=== PATIENT | female | born 1935 | race Hispanic/Latino ===

== ENCOUNTER 2021-11-12 08:14 | Inpatient (IN) | payer OTHER ==
--- NOTE | 2021-11-12 09:06 | ER ---
Nurse's Notes [facility] Name: Carly Baeza Age: 86 yrs Sex: Female : 1935 Arrival Date: 11/12/2021 Time: 08:18 Bed 6 Private MD: Diagnosis: Acute kidney failure, unspecified Presentation: 11/12 08:31 Chief complaint: Patient states: pt presented to ED referred by kidney DOC to come to ED to be admitted for dialysis port to get dialysis. Coronavirus screen: Vaccine status: Patient reports receiving the 2nd dose of the covid vaccine. Ebola Screen: Patient denies travel to an Ebola-affected area in the 21 days before illness onset. Initial Sepsis Screen: Does the patient meet any 2 criteria? No. Patient's initial sepsis screen is negative. Does the patient have a suspected source of infection? No. Patient's initial sepsis screen is negative. Risk Assessment: Do you want to hurt yourself or someone else? Patient reports no desire to harm self or others. Onset of symptoms was November 2021. 08:31 Method Of Arrival: Ambulatory 08:31 Acuity: SHELLY 3 Triage Assessment: 08:33 General: Appears in no apparent distress. Behavior is calm, cooperative. Pain: Denies courtney pain. Historical: - Allergies: 08:33 Levaquin; courtney 08:33 Morphine; courtney - Home Meds: 08:33 Enalapril Oral [Active]; Isosorbide Mononitrate Oral [Active]; levothyroxine oral courtney [Active]; Metformin Oral [Active]; Metoprolol Tartrate Oral [Active]; - PMHx: 08:33 Diabetes - NIDDM; High Cholesterol; Hypertension; Hypothyroidism; End stage renal courtney disease; CAD; COPD; Myocardial infarction; - PSHx: 08:33 None; courtney - Immunization history:: Adult Immunizations up to date. - Social history:: Smoking status: Patient denies any tobacco usage or history of. Screenin:35 Abuse screen: Denies threats or abuse. Nutritional screening: No deficits noted. ke1 Tuberculosis screening: No symptoms or risk factors identified. Fall Risk No fall in past 12 months (0 pts). No secondary diagnosis (0 pts). IV access (20 points). Ambulatory Aid- None/Bed Rest/Nurse Assist (0 pts). Gait- Normal/Bed Rest/Wheelchair (0 pts) Mental Status- Oriented to own ability (0 pts). Total Dong Fall Scale indicates No Risk (0-24 pts). Assessment: 08:35 Reassessment: patient is here because she needs a dialysis line inserted. General: ke1 Appears in no apparent distress. Behavior is calm, cooperative. Pain: Denies pain. Neuro: Level of Consciousness is awake, alert, obeys commands. Cardiovascular: Capillary refill < 3 seconds. Respiratory: Airway is patent Trachea midline Respiratory effort is even, unlabored. Vital Signs: 08:31 BP 174 / 95; Pulse 71; Resp 17; Temp 98.4; Pulse Ox 100% ; Weight 91.63 kg; Height 5 courtney ft. 3 in. (160.02 cm); 08:31 Body Mass Index 35.78 (91.63 kg, 160.02 cm) ED Course: 08:18 Patient arrived in ED. ds1 08:19 Rosanna Ackerman MD is Attending Physician. sp3 08:27 Davey Smith RN is Primary Nurse. ke1 08:33 Triage completed. courtney 08:33 Arm band placed on. courtney 08:35 Bed in low position. Call light in reach. ke1 09:00 No provider procedures requiring assistance completed. Patient admitted, IV remains in ke1 place. 09:05 Sina Rebolledo MD is Hospitalizing Provider. sp3 09:31 SARS-COV-2 RT PCR (Document "Date of Onset" if Symptomatic) Sent. courtney 09:31 Basic Metabolic Panel Sent. courtney 09:31 CBC with Diff Sent. courtney 09:31 LFT's Sent. courtney 09:32 Inserted saline lock: 20 gauge in left antecubital area, using aseptic technique. courtney Administered Medications: No medications were administered Outcome: 09:06 Decision to Hospitalize by Provider. sp3 10:00 Admitted to OR accompanied by nurse. ke1 10:00 Condition: stable 10:00 Instructed on the need for admit. 10:15 Patient left the ED. ke1 Signatures: Birgit Cosme ds1 Rosanna Ackerman MD MD sp3 Lilia-StagerMorena RN RN Davey Smith RN RN ke1
--- NOTE | 2021-11-12 09:07 | EDPHYS ---
Physician Documentation [facility] Name: Carly Baeza Age: 86 yrs Sex: Female : 1935 Arrival Date: 11/12/2021 Time: 08:18 Bed 6 Private MD: ED Physician Rosanna Ackerman HPI: 11/12 08:35 This 86 yrs old Female presents to ER via Ambulatory with complaints of Needs sp3 dialysis catheter Replacement. 08:35 86-year-old female with a history of diabetes, hypertension, hypothyroidism, and recent sp3 renal function decline presents to the ED referred by her melangeur operator and engraver seals for hemodialysis catheter placement and initiation of hemodialysis. Patient has had a decrease in GFR of a baseline of 10 in the field which had decreased to 5 and due to this patient was referred for dialysis. I received a call from Dr. Ovalles who asked patient to be admitted to the hospitalist service and routine labs initiated as well as a consult to Dr. Grover for surgical catheter placement. Patient has no current symptoms including headache, chest pain, shortness of breath, peripheral edema, abdominal pain, fever, any other symptoms on ROS.. Historical: - Allergies: 08:33 Levaquin; courtney 08:33 Morphine; courtney - Home Meds: 08:33 Enalapril Oral [Active]; Isosorbide Mononitrate Oral [Active]; levothyroxine oral courtney [Active]; Metformin Oral [Active]; Metoprolol Tartrate Oral [Active]; - PMHx: 08:33 Diabetes - NIDDM; High Cholesterol; Hypertension; Hypothyroidism; End stage renal courtney disease; CAD; COPD; Myocardial infarction; - PSHx: 08:33 None; courtney - Immunization history:: Adult Immunizations up to date. - Social history:: Smoking status: Patient denies any tobacco usage or history of. ROS: 08:36 Constitutional: Negative for fever, chills, and weight loss, Eyes: Negative for injury, sp3 pain, redness, and discharge, ENT: Negative for injury, pain, and discharge, Neck: Negative for injury, pain, and swelling, Cardiovascular: Negative for chest pain, palpitations, and edema, Respiratory: Negative for shortness of breath, cough, wheezing, and pleuritic chest pain, Abdomen/GI: Negative for abdominal pain, nausea, vomiting, diarrhea, and constipation, Back: Negative for injury and pain, MS/Extremity: Negative for injury and deformity, Skin: Negative for injury, rash, and discoloration, Neuro: Negative for headache, weakness, numbness, tingling, and seizure, Psych: Negative for depression, anxiety, suicide ideation, homicidal ideation, and hallucinations. 08:36 All other systems are negative. Exam: 08:37 Constitutional: This is a well developed, well nourished patient who is awake, alert, sp3 and in no acute distress. Head/Face: Normocephalic, atraumatic. Eyes: Pupils equal round and reactive to light, extra-ocular motions intact. Lids and lashes normal. Conjunctiva and sclera are non-icteric and not injected. Cornea within normal limits. Periorbital areas with no swelling, redness, or edema. ENT: Nares patent. No nasal discharge, no septal abnormalities noted. External auditory canals are clear. Oropharynx with no redness, swelling, or masses, exudates, or evidence of obstruction, uvula midline. Mucous membranes moist. Neck: Trachea midline, no thyromegaly or masses palpated, and no cervical lymphadenopathy. Supple, full range of motion without nuchal rigidity, or vertebral point tenderness. No Meningismus. Chest/axilla: Normal chest wall appearance and motion. Nontender with no deformity. No lesions are appreciated. Cardiovascular: Regular rate and rhythm with a normal S1 and S2. No gallops, murmurs, or rubs. Normal PMI, no JVD. No pulse deficits. Respiratory: Lungs have equal breath sounds bilaterally, clear to auscultation and percussion. No rales, rhonchi or wheezes noted. No increased work of breathing, no retractions or nasal flaring. Abdomen/GI: Soft, non-tender, with normal bowel sounds. No distension or tympany. No guarding or rebound. No evidence of tenderness throughout. MS/ Extremity: Pulses equal, no cyanosis. Neurovascular intact. Full, normal range of motion. Neuro: Awake and alert, GCS 15, oriented to person, place, time, and situation. Cranial nerves II-XII grossly intact. Motor strength 5/5 in all extremities. Sensory grossly intact. Cerebellar exam normal. Normal gait. Psych: Awake, alert, with orientation to person, place and time. Behavior, mood, and affect are within normal limits. 08:42 ECG was reviewed by the Attending Physician. EKG demonstrates normal sinus rhythm at 60 sp3 bpm with leftward axis, nonspecific diffuse ST/T changes without evidence of acute ischemia. Intervals are also normal. Vital Signs: 08:31 BP 174 / 95; Pulse 71; Resp 17; Temp 98.4; Pulse Ox 100% ; Weight 91.63 kg; Height 5 courtney ft. 3 in. (160.02 cm); 08:31 Body Mass Index 35.78 (91.63 kg, 160.02 cm) courtney MDM: 08:27 Patient medically screened. sp3 08:37 Data reviewed: vital signs, nurses notes. ED course: 86-year-old female who needs sp3 hemodialysis initiation. We will admit patient to the hospitalist service per primary team's request and consult surgery and nephrology as well as laboratory values and EKG. Patient is in no acute distress and no critical emergency exists at this time other than her decreasing renal failure.. 11/12 08:21 Order name: Basic Metabolic Panel sp3 11/12 08:21 Order name: CBC with Diff sp3 11/12 08:21 Order name: LFT's sp3 11/12 08:21 Order name: Magnesium sp3 11/12 08:21 Order name: NT PRO-BNP sp3 11/12 08:21 Order name: PT-INR sp3 11/12 08:21 Order name: Troponin HS sp3 11/12 08:21 Order name: EKG; Complete Time: 08:22 sp3 11/12 08:21 Order name: Cardiac monitoring; Complete Time: 09:31 sp3 11/12 08:21 Order name: Hepatitis Panel sp3 11/12 08:21 Order name: Basic Metabolic Panel EDMS 11/12 08:21 Order name: CBC with Automated Diff EDMS 11/12 08:21 Order name: Liver (Hepatic) Function EDMS 11/12 09:16 Order name: SARS-COV-2 RT PCR (Document "Date of Onset" if Symptomatic) ke1 11/12 08:21 Order name: EKG - Nurse/Tech; Complete Time: 09:03 sp3 11/12 08:21 Order name: IV Saline Lock; Complete Time: 09:31 sp3 11/12 08:21 Order name: Labs collected and sent; Complete Time: : sp3 11/12 08:21 Order name: O2 Sat Monitoring; Complete Time: sp3 11/12 08:44 Order name: NPO; Complete Time: : sp3 Administered Medications: No medications were administered Disposition Summary: 11/12/21 09:06 Hospitalization Ordered Hospitalization Status: Observation sp3 Provider: Sina Rebolledo sp3 Location: Telemetry/MedSurg (observation) sp3 Condition: Stable sp3 Problem: an acute exacerbation sp3 Symptoms: have worsened sp3 Bed/Room Type: Standard sp3 Room Assignment: sp3 Diagnosis - Acute kidney failure, unspecified sp3 Forms: - Medication Reconciliation Form sp3 - SBAR form sp3 Signatures: Dispatcher [employer] Rosanna Fulton MD MD sp3 Lilia-Morena Banda RN RN
[2021-11-12 09:21] LABS: Absolute Lymphocytes (CBC) 0.7 K/uL (0.7-4.9); Hematocrit 23.3 % (36.0-45.0); Lymphocytes % 14.7 % (15.3-44.8); MPV 8.5 fL (7.6-11.3); RBC Red Blood Cell Count 2.51 M/uL (3.86-4.86)
[2021-11-12 09:25] LABS: Protime INR 0.95
[2021-11-12] MEDS ORDERED: NA CHLORIDE 0.9% 500 ML ONE (10:11)
[2021-11-12] MEDS ORDERED: ONDANSETRON 4 MG/2 ML VIAL IV PRN (10:27)
[2021-11-12] MEDS ORDERED: ACETAMINOPHEN 500 MG TAB PO PRN (10:27)
[2021-11-12] MEDS ORDERED: MORPHINE 2 MG/ML SYR IV PRN (10:27)
[2021-11-12 10:50] LABS: Albumin 3.3 g/dL (3.4-5.0); BUN Blood Urea Nitrogen 95 mg/dL (7-18); Bicarbonate 21 mmol/L (21-32); Bilirubin Total 0.3 mg/dL (0.2-1.0); Glucose Level 103 mg/dL (74-106); Magnesium 2.1 mg/dL (1.8-2.4); NT PRO-BNP 5677 pg/mL (<450); Potassium 4.8 mmol/L (3.5-5.1); Protein, Total 6.5 g/dL (6.4-8.2); Sodium Level 143 mmol/L (136-145)
[2021-11-12 10:51] LABS: Bilirubin Direct < 0.1 mg/dL (0-0.2)
[2021-11-12] MEDS ORDERED: CEFAZOLIN SODIUM 1 GM/VIAL ONE (10:57)
[2021-11-12 11:09] LABS: ALT/SGPT 11 U/L (12-78); AST/SGOT 9 U/L (15-37); Alkaline Phosphatase 77 U/L (45-117)
[2021-11-12] MEDS ORDERED: MIDAZOLAM HCL 2 MG/2 ML INJ ONE (11:09)
[2021-11-12] MEDS ORDERED: dexAMETHasone 4 MG/ML VIAL ONE (11:09)
[2021-11-12] MEDS ORDERED: LIDOCAINE 1% MPF 5 ML VIAL ONE (11:09)
[2021-11-12] MEDS ORDERED: FENTANYL CITR 100 MCG/2 ML ONE (11:09)
[2021-11-12] MEDS ORDERED: ETOMIDATE 20 MG/10 ML VIAL IV ONE (11:10)
[2021-11-12] MEDS ORDERED: ONDANSETRON 4 MG/2 ML VIAL ONE (11:10)
[2021-11-12] MEDS ORDERED: HEPARIN 5000 UNIT/ML 1 ML VIAL ONE (11:11)
[2021-11-12] MEDS ORDERED: NA CHLORIDE 0.9% 100 ML IV ONE (11:12)
[2021-11-12] MEDS ORDERED: LIDOCAINE 1% 20 ML MDV ONE (11:13)
[2021-11-12] MEDS ORDERED: NS 0.9% VIAL 10 ML ONE (11:13)
--- NOTE | 2021-11-12 11:57 | PREOPCON ---
Date of Consultation: 11/12/2021 Reason For Consultation: The patient needs urgent dialysis. History Of Present Illness: The patient is an 86-year-old female with multiple medical problems, who has been followed by entry level receptionist Dr. Ovalles as an outpatient. Her GFR has reduced to 5% and requi res dialysis urgently and the patient does have a fistula, which has not matured in the right arm, wh ich was placed 2 weeks ago. The patient is awake, alert. Denies any sore throat, runny nose, cough, headaches, or dizziness. No chest pain. No fever or chills. Review of Systems: Otherwise unremarkable. Past Medical History: Significant for diabetes type 2, hypercholesterolemia, hypertension, hypothyro idism, end-stage renal disease, coronary artery disease, COPD, and [place]. Past Surgical History: Includes thyroidectomy, cholecystectomy, . Allergies: LEVAQUIN AND MORPHINE. Social History: The patient does not smoke or drink alcohol. Family History: Noncontributory. Physical Examination: Vital Signs: Stable. She is afebrile. General: She is awake, alert, and oriented x3. Head and Neck: Cranial nerves 2 through 12 are grossly within limits. No neck masses. No JVD. Thr oat clear. Neck is supple. Chest: Clear. Heart: S1 and S2. Abdomen: Soft. Extremities: Neurovascularly intact. Neurologic: Nonfocal. Laboratory Data: H and H are 7.7 and 23.3, platelets are 174. INR is 0.95. Chemistry is pending. Assessment: An 86-year-old female with acute renal failure requiring dialysis soon. Recommendations: We will proceed with placement of a Tesio catheter. The patient and family underst and the risks, benefits, and alternatives and agrees to procedure. Plan of care was discussed with Rachel Ovalles. CHANDLER/LA Voice ID: [id number] Report ID: [id number]
--- NOTE | 2021-11-12 12:19 | P.OP ---
Electrical Engineer Mep: NONE,NONE Preoperative diagnosis: Acute renal failure, end-stage renal disease Postoperative diagnosis: Same Primary procedure: Right IJ Tesio catheter placement Secondary procedure: Interpretation of intraoperative fluoroscopy Anesthesia: General Estimated blood loss: Minimal Specimen: None Findings: As above Operative Technique: Patient brought to the OR placed in supine position. Patient prepped and draped in usual sterile fashion. Lidocaine 1% infiltrated locally. 18-gauge needle used to access the right IJ vein. Guidewire passed and position confirmed with fluoroscopy. Counterincision made on the right anterior chest. Tunneling of device used to tunnel the catheter between the 2 wounds. Seldinger technique used. Right IJ vein dilated. Tip of the catheter placed in the SVC under fluoroscopy. Catheter flushed with heparin and packed with heparin with good blood flow. 3-0 chromic used to approximate subcutaneous tissue and closed skin. And 3-0 nylon used to secure Tesio catheter to the chest wall. Sterile dressing applied. Patient awakened taken to recovery in good general condition. Complications: None Transferred to: Recovery Room Condition: Good
--- NOTE | 2021-11-12 12:23 | RAD REPORT ---
EXAM DESCRIPTION: RAD - Fluoroscopy <1 Hour - 11/12/2021 12:13 pm FINDINGS: Two portable C-arm views were submitted from fluoroscopic assisted placement of a double-l umen hemodialysis catheter. No suspicious or unexpected finding on the images. Fluoro time was less than 0.1 minutes. Cumulative dose measured 1.72 mGy.
--- NOTE | 2021-11-12 12:47 | RAD REPORT ---
EXAM DESCRIPTION: RAD - Chest Single View - 11/12/2021 12:40 pm CLINICAL HISTORY: Status post Tesio catheter placement Chest pain. COMPARISON: No comparisons FINDINGS: Portable technique limits examination quality. Right-sided venous catheter is in place with tip in the SVC. No postprocedure pneumothorax.
[2021-11-12 14:28] VITALS: BMI 35.7
[2021-11-12] MEDS ORDERED: NA CHLORIDE 0.9% 1,000 ML IV PRN (15:29)
[2021-11-12] MEDS ORDERED: MANNITOL 25% 12.5 GM/50 ML VIAL IV PRN (15:29)
[2021-11-12] MEDS ORDERED: ALBUMIN HUMAN 25% 50 ML IV SCH (16:00)
[2021-11-12] MEDS ORDERED: EPOETIN ALFA-EPBX 10,000 UNIT/ML VIAL SQ ONE (16:00)
--- NOTE | 2021-11-12 19:05 | P.CNS ---
Date of Consult: 11/12/21 Reason for Consult: ESRD Requesting Physician: Sina Rebolledo Chief Complaint: Mild uremia History of Present Illness: 86 yo HF HTN, DM, CKD presented to the [facility] ER with severe, progressive CKD in the setting of HTN & DM, that is now requiring dialysis due to a worsening GFR. +Appetite +Fatigue +Intermittent edema The case was reviewed with her creative project manager, Dr. Key. We decided it would be best to initiate the patient in the hospital due to her multiple comorbidities. No current NSAIDs. No difficulty with urination. Allergies levofloxacin [From Levaquin] Allergy (Unverified 10/29/16 12:41) Unknown morphine Allergy (Verified 11/12/21 10:55) Shortness of breath Home medications list reviewed: Yes Home Medications: Amlodipine Besylate [Norvasc] 10 mg PO DAILY 12/21/15 Isosorbide Mononitrate [Isosorbide Mononitrate ER] 60 mg PO DAILY 12/21/15 Levothyroxine [Synthroid*] 125 mcg PO [id number] 12/21/15 Aspirin [Aspirin EC 81 MG] 81 mg PO DAILY 11/12/21 Calcium Acetate [Phoslo] 667 mg PO TIDWM 11/12/21 Ferrous Sulfate [Feosol] 325 mg PO M,W,F 11/12/21 Levetiracetam [Keppra] 250 mg PO BID 11/12/21 Levothyroxine Sodium [Euthyrox] 125 mcg PO [id number] 11/12/21 Na Bicarb Tab [Sodium Bicarb 325 MG Tab*] 650 mg PO TID 11/12/21 Pantoprazole [Protonix Tab] 40 mg PO [id number] 11/12/21 Ubidecarenone [Co Q-10] 100 mg PO DAILY 11/12/21 carvediloL [Coreg] 12.5 mg PO BID 11/12/21 - Past Medical/Surgical History Diabetic: Yes -: ESRD -: HD cath -: Hx of [place] -: Thyroidectomy -: HTN -: Diverticulitis -: NIDDM -: Hx Shingles -: HLD -: csection -: cholecystectomy -: l hip surgery -: cardiac cath - Family History Mother Medical History: Heart disease Father Medical History: Kidney disease - Social History Smoking Status: Never smoker Alcohol use: No CD- Drugs: No Caffeine use: No Place of Residence: Home Review of Systems 10-point ROS is otherwise unremarkable General: Weakness Cardiovascular: Edema Physical Examination Temp Pulse Resp BP Pulse Ox 97.0 F 56 16 122/58 L 96 11/12/21 16:00 11/12/21 16:00 11/12/21 16:00 11/12/21 16:00 11/12/21 16:00 General: In no apparent distress, Cooperative HEENT: Atraumatic Neck: Supple Respiratory: Clear to auscultation bilaterally Cardiovascular: No edema, Regular rate/rhythm Gastrointestinal: Soft and benign, Non-distended Musculoskeletal: No clubbing, No contractures Integumentary: No rashes, No cyanosis Neurological: Normal speech Urinary: Dialysis catheter Laboratory Data (last 24 hrs) 11/12/21 09:11: PT 10.9, INR 0.95 11/12/21 09:11: WBC 4.70, Hgb 7.7 L, Hct 23.3 L, Plt Count 174 11/12/21 09:11: Sodium 143, Potassium 4.8, BUN 95 H, Creatinine 6.92 H*, Glucose 103, Magnesium 2.1, Total Bilirubin 0.3, AST 9 L, ALT 11 L, Alkaline Phosphatase 77 Imagings Data: EXAM DESCRIPTION: RAD - Chest Single View - 11/12/2021 12:40 pm CLINICAL HISTORY: Status post Tesio catheter placement Chest pain. COMPARISON: No comparisons FINDINGS: Portable technique limits examination quality. Right-sided venous catheter is in place with tip in the SVC. No postprocedure pneumothorax. Conclusions/Impression: ESRD -Dr. Grover consulted for tunneled CVC placement -Initiate HD today -Hepatitis panel pending -Social service consult for HD placement HTN with CKD/ CHF -Monitor BP Diastolic CHF, chronic -HD with UF -Start CoEQ10 DM II with CKD -Low sugar diet Anemia in CKD -Give Retacrit X1 CKD MBD -Start Calcitriol -Start Cholecalciferol Thank you kindly for the consultation. Case reviewed with Dr. Rebolledo, Dr. Grover and Dr. Ackerman.
[2021-11-13] MEDS: DOCUSATE NA 100 MG CAP PO SCH ×3 (00:59→23:47)
[2021-11-13] MEDS: CALCIUM ACETATE 667 MG TAB PO SCH ×3 (08:08→17:12)
[2021-11-13] MEDS: MULTIVITAMINS,THERAPEUT 1 TAB PO SCH (08:08)
[2021-11-13] MEDS: CALCITROL 0.25 MCG CAP PO SCH (08:08)
[2021-11-13] MEDS: VITAMIN D 5,000 UNIT CAP PO SCH (08:08)
[2021-11-13] MEDS: COENZYME Q10- 200 MG CAP PO SCH (08:09)
[2021-11-13] MEDS ORDERED: COENZYME Q10- 200 MG CAP PO SCH (09:00)
--- NOTE | 2021-11-13 09:14 | P.HP ---
Certification for Inpatient Patient admitted to: Inpatient With expected LOS: >2 Midnights Patient will require the following post-hospital care: None Practitioner: I am a practitioner with admitting privileges, knowledge of patient current condition, hospital course, and medical plan of care. Services: Services provided to patient in accordance with Admission requirements found in Title 42 Section 412.3 of the Code of Federal Regulations Patient History Date of Service: 11/12/21 Reason for admission: Renal failure/ESRD History of Present Illness: Patient is an 86-year-old female who came to the hospital with renal failure. Patient's renal function has been worsening progressively. Patient came to the emergency room for further evaluation. In the emergency room, patient was taken to the operating room for hemodialysis access catheter. Once this was done patient was dialyzed. Patient is severely uremic and acidotic. Patient will need long-term hemodialysis. We will get with case management to get this arranged. At this time, patient is clinically doing well and plan to discharge home once we get outpatient hemodialysis arranged. Allergies levofloxacin [From Levaquin] Allergy (Unverified 10/29/16 12:41) Unknown morphine Allergy (Verified 11/12/21 10:55) Shortness of breath Home Medications: Amlodipine Besylate [Norvasc] 10 mg PO DAILY 12/21/15 Isosorbide Mononitrate [Isosorbide Mononitrate ER] 60 mg PO DAILY 12/21/15 Levothyroxine [Synthroid*] 125 mcg PO [id number] 12/21/15 Aspirin [Aspirin EC 81 MG] 81 mg PO DAILY 11/12/21 Calcium Acetate [Phoslo] 667 mg PO TIDWM 11/12/21 Ferrous Sulfate [Feosol] 325 mg PO M,W,F 11/12/21 Levetiracetam [Keppra] 250 mg PO BID 11/12/21 Levothyroxine Sodium [Euthyrox] 125 mcg PO [id number] 11/12/21 Na Bicarb Tab [Sodium Bicarb 325 MG Tab*] 650 mg PO TID 11/12/21 Pantoprazole [Protonix Tab] 40 mg PO [id number] 11/12/21 Ubidecarenone [Co Q-10] 100 mg PO DAILY 11/12/21 carvediloL [Coreg] 12.5 mg PO BID 11/12/21 - Past Medical/Surgical History Has patient received pneumonia vaccine in the past: Yes Diabetic: Yes -: ESRD -: HD cath -: Hx of [place] -: Thyroidectomy -: HTN -: Diverticulitis -: NIDDM -: Hx Shingles -: HLD -: csection -: cholecystectomy -: l hip surgery -: cardiac cath - Family History Mother Medical History: Heart disease Father Medical History: Kidney disease - Social History Alcohol use: No CD- Drugs: No Caffeine use: No Place of Residence: Home Review of Systems 10-point ROS is otherwise unremarkable Physical Examination - Vital Signs Temperature: 97.1 F Blood Pressure: 143/65 Pulse: 87 Respirations: 16 Pulse Ox (%): 93 - Physical Exam General: Alert, In no apparent distress, Oriented x3 HEENT: Atraumatic, PERRLA, Mucous membr. moist/pink, EOMI, Sclerae nonicteric Neck: Supple, 2+ carotid pulse no bruit, No LAD, Without JVD or thyroid abnormality Respiratory: Diminished, Crackles/rales Cardiovascular: Regular rate/rhythm, Normal S1 S2, No murmurs Gastrointestinal: Normal bowel sounds, Soft and benign, Non-distended, No tenderness Musculoskeletal: No clubbing, No swelling, No tenderness Integumentary: No rashes Neurological: Normal gait, Normal speech, Normal strength at 5/5 x4 extr, Normal tone, Sensation intact, Cranial nerves 3-12 intact, Normal affect Lymphatics: No axilla or inguinal lymphadenopathy - Studies Laboratory Data (last 24 hrs) 11/12/21 09:11: PT 10.9, INR 0.95 11/12/21 09:11: WBC 4.70, Hgb 7.7 L, Hct 23.3 L, Plt Count 174 11/12/21 09:11: Sodium 143, Potassium 4.8, BUN 95 H, Creatinine 6.92 H*, Glucose 103, Magnesium 2.1, Total Bilirubin 0.3, AST 9 L, ALT 11 L, Alkaline Phosphatase 77 Assessment & Plan - Problems (Diagnosis) (1) End-stage renal disease needing dialysis Current Visit: Yes Status: Acute (2) Chest discomfort Current Visit: Yes Status: Acute (3) Volume overload Current Visit: Yes Status: Acute (4) Uremia Current Visit: Yes Status: Acute - Plan Plan: 1. Consult nephrology and general surgery. 2. Hemodialysis access catheter per general surgery 3. Hemodialysis per nephrology 4. Start PPI for chest discomfort 5. Arrange for outpatient hemodialysis with case management 6. GI DVT prophylaxis Discharge Plan: Home Plan to discharge in: Greater than 2 days - Advance Directives Does patient have a Living Will: No Does patient have a Durable POA for Healthcare: No - Code Status/Comfort Care Code Status Assessed: Yes Code Status: Full Code Critical Care: No Time Spent Managing PTS Care (In Minutes): 45
[2021-11-13] MEDS: carvediloL 12.5 MG TAB PO SCH ×2 (09:15→23:47)
[2021-11-13] MEDS ORDERED: PANTOPRAZOLE 40MG TABLET PO ONE (09:25)
[2021-11-13] MEDS ORDERED: MAGNES/ALUMIN/SIMET 30ML UCUP PO ONE (09:25)
[2021-11-13] MEDS: ISOSORBIDE MONO SR 60 MG TAB PO SCH (09:30)
[2021-11-13 11:36] LABS: Absolute Lymphocytes (CBC) 0.8 K/uL (0.7-4.9); Lymphocytes % 10.6 % (15.3-44.8); MPV 8.9 fL (7.6-11.3); RBC Red Blood Cell Count 2.67 M/uL (3.86-4.86)
[2021-11-13] MEDS ORDERED: CALCIUM ACETATE 667 MG TAB PO SCH (12:00)
[2021-11-13] MEDS: levETIRAcetam 500 MG TAB PO SCH ×2 (12:27→23:47)
[2021-11-13 12:42] LABS: Albumin 3.2 g/dL (3.4-5.0); Bilirubin Total 0.3 mg/dL (0.2-1.0); Folic Acid, (Folate) 22.1 ng/mL (3.1-17.5); Phosphorus 3.4 mg/dL (2.5-4.9); Protein, Total 6.6 g/dL (6.4-8.2); Uric Acid 5.9 mg/dL (2.6-6.0)
[2021-11-13 12:43] LABS: Potassium 4.6 mmol/L (3.5-5.1)
[2021-11-13] MEDS ORDERED: SODIUM BICARB 325 MG TAB PO SCH (14:00)
--- NOTE | 2021-11-13 20:31 | P.PN ---
Date of Service: 11/13/21 Vital Signs Temp Pulse Resp BP Pulse Ox 96.9 F 62 16 130/63 95 11/13/21 16:00 11/13/21 16:00 11/13/21 16:00 11/13/21 16:00 11/13/21 16:00 Medications Acetaminophen (Acetaminophen 500 Mg Tab) 500 mg PO Q6H PRN PRN Reason: TEMP > 100.4' F OR MILD PAIN Last Admin: 11/12/21 18:45 Dose: 500 mg Documented by: Amlodipine Besylate (Amlodipine 10 Mg Tab) 10 mg PO DAILY [facility] Aspirin (Aspirin Ec 81 Mg Tab) 81 mg PO DAILY [facility] Calcitriol (Calcitrol 0.25 Mcg Cap) 0.5 mcg PO DAILY [facility] Last Admin: 11/13/21 08:08 Dose: 0.5 mcg Documented by: Calcium Acetate (Calcium Acetate 667 Mg Tab) 667 mg PO TIDWM [facility] Last Admin: 11/13/21 17:12 Dose: 667 mg Documented by: Carvedilol (Carvedilol 12.5 Mg Tab) 12.5 mg PO BID [facility] Last Admin: 11/13/21 09:15 Dose: Not Given Documented by: Cholecalciferol (Vitamin D 5,000 Unit Cap) 5,000 unit PO DAILY [facility] Last Admin: 11/13/21 08:08 Dose: 5,000 unit Documented by: Coenzyme Q10 (Coenzyme Q10- 200 Mg Cap) 200 mg PO DAILY [facility] Last Admin: 11/13/21 08:09 Dose: 200 mg Documented by: Docusate Sodium (Docusate Na 100 Mg Cap) 100 mg PO BID [facility] Last Admin: 11/13/21 08:08 Dose: 100 mg Documented by: Ferrous Sulfate (Ferrous Sulfate 325 Mg Tab) 325 mg PO M,W,F [facility] Heparin Sodium (Porcine) (Heparin 1,000 Unit/Ml Vial) 6,000 unit IV EVERY HD PRN PRN Reason: AFTER EACH Albumin Human (Albumin 25%) 50 mls @ 100 mls/hr IV EVERY HD [facility] Isosorbide Mononitrate (Isosorbide [place] Sr 60 Mg Tab) 60 mg PO DAILY [facility] Last Admin: 11/13/21 09:30 Dose: Not Given Documented by: Levetiracetam (Levetiracetam 500 Mg Tab) 250 mg PO BID [facility] Last Admin: 11/13/21 12:27 Dose: 250 mg Documented by: Levothyroxine Sodium (Levothyroxine Sod 0.125 Mg Tab) 0.125 mg PO [id number] [facility] Mannitol (Mannitol 25% 12.5 Gm/50 Ml Vial) 12.5 gm IV EVERY HD PRN PRN Reason: PRN FOR BP SUPPORT AT HD Ondansetron HCl (Ondansetron 4 Mg/2 Ml Vial) 4 mg IV Q8H PRN PRN Reason: NAUSEA / VOMITING Pantoprazole Sodium (Pantoprazole 40mg Tablet) 40 mg PO [id number] [facility]; Protocol Sodium Chloride (Flush Normal Saline 10 Ml) 10 ml IV BID [facility] Last Admin: 11/13/21 08:09 Dose: 10 ml Documented by: Vitamin B Complex/Vit C/Folic Acid (Multivitamins,Therapeut 1 Tab) 1 tab PO DAILY [facility] Last Admin: 11/13/21 08:08 Dose: 1 tab Documented by: Assessment/ Plan: Nephrology No dyspnea No chest pain No acute events overnight Vitals, medications, blood work and imaging reviewed in the chart. General: In no apparent distress, Cooperative HEENT: Atraumatic Neck: Supple Respiratory: Clear to auscultation bilaterally Cardiovascular: No edema, Regular rate/rhythm Gastrointestinal: Soft and benign, Non-distended Musculoskeletal: No clubbing, No contractures Integumentary: No rashes, No cyanosis Neurological: Normal speech Urinary: Dialysis catheter Laboratory Data (last 24 hrs) 11/12/21 09:11: PT 10.9, INR 0.95 11/12/21 09:11: WBC 4.70, Hgb 7.7 L, Hct 23.3 L, Plt Count 174 11/12/21 09:11: Sodium 143, Potassium 4.8, BUN 95 H, Creatinine 6.92 H*, Glucose 103, Magnesium 2.1, Total Bilirubin 0.3, AST 9 L, ALT 11 L, Alkaline Phosphatase 77 Imagings Data: EXAM DESCRIPTION: RAD - Chest Single View - 11/12/2021 12:40 pm CLINICAL HISTORY: Status post Tesio catheter placement Chest pain. COMPARISON: No comparisons FINDINGS: Portable technique limits examination quality. Right-sided venous catheter is in place with tip in the SVC. No postprocedure pneumothorax. Conclusions/Impression: ESRD -HD initiated 11-12-20 -Hepatitis panel pending -Social service consult for HD placement HTN with CKD/ CHF -Monitor BP Diastolic CHF, chronic -HD with UF -Continue CoEQ10 DM II with CKD -Low sugar diet Anemia in CKD -Give Retacrit tomorrow CKD MBD -Continue Calcitriol -Continue Cholecalciferol -Continue Phoslo
[2021-11-14 04:11] LABS: Absolute Lymphocytes (CBC) 1.1 K/uL (0.7-4.9); Lymphocytes % 19.8 % (15.3-44.8); MPV 8.3 fL (7.6-11.3); RBC Red Blood Cell Count 2.27 M/uL (3.86-4.86)
[2021-11-14 04:26] LABS: AST/SGOT 12 U/L (15-37); Albumin 2.7 g/dL (3.4-5.0); Alkaline Phosphatase 67 U/L (45-117); BUN Blood Urea Nitrogen 41 mg/dL (7-18); Bicarbonate 29 mmol/L (21-32); Bilirubin Total 0.3 mg/dL (0.2-1.0); Glucose Level 86 mg/dL (74-106); Potassium 4.2 mmol/L (3.5-5.1); Protein, Total 5.5 g/dL (6.4-8.2); Sodium Level 143 mmol/L (136-145)
[2021-11-14 04:28] LABS: ALT/SGPT < 10 U/L (12-78)
[2021-11-14] MEDS: LEVOTHYROXINE SOD 0.125 MG TAB PO SCH (05:22)
[2021-11-14] MEDS: PANTOPRAZOLE 40MG TABLET PO SCH (05:22)
[2021-11-14] MEDS: DOCUSATE NA 100 MG CAP PO SCH ×2 (09:00→20:55)
[2021-11-14] MEDS: VITAMIN D 5,000 UNIT CAP PO SCH (09:00)
[2021-11-14] MEDS ORDERED: UBIDECARENONE 100 MG PO SCH (09:00)
[2021-11-14] MEDS ORDERED: EPOETIN ALFA 10,000 UNIT/ML VIAL SQ SCH (09:00)
[2021-11-14] MEDS: CALCITROL 0.25 MCG CAP PO SCH (09:01)
[2021-11-14] MEDS: ASPIRIN EC 81 MG TAB PO SCH (09:01)
[2021-11-14] MEDS: ISOSORBIDE MONO SR 60 MG TAB PO SCH (09:01)
[2021-11-14] MEDS: CALCIUM ACETATE 667 MG TAB PO SCH ×3 (09:01→16:28)
[2021-11-14] MEDS: AMLODIPINE 10 MG TAB PO SCH (09:02)
[2021-11-14] MEDS: levETIRAcetam 500 MG TAB PO SCH ×2 (09:02→20:56)
[2021-11-14] MEDS: carvediloL 12.5 MG TAB PO SCH ×2 (09:02→20:55)
[2021-11-14] MEDS: COENZYME Q10- 200 MG CAP PO SCH (09:03)
[2021-11-14] MEDS: MULTIVITAMINS,THERAPEUT 1 TAB PO SCH (09:03)
--- NOTE | 2021-11-14 12:57 | EKG ---
Test Date: 2021-11-12 Test Time: 08:36:05 Groundhand: ALFREDO MEASUREMENT RESULTS: Intervals: Rate: 60 SD: 180 QRSD: 98 QT: 408 QTc: 408 [place]: P: 169 SD: 180 QRS: 215 T: 113 INTERPRETIVE STATEMENTS: Suspect arm lead reversal, interpretation assumes no reversal Unusual P axis, possible ectopic atrial rhythm Lateral infarct, age undetermined Abnormal ECG Compared to ECG 10/07/2015 17:23:50 Sinus rhythm no longer present Left-axis deviation no longer present Left ventricular hypertrophy no longer present Myocardial infarct finding still present Electronically Signed On 11-14-21 12:52:29 [employer] by Zane Shipley
[2021-11-14] MEDS: FERROUS SULFATE 325 MG TAB PO SCH (16:28)
--- NOTE | 2021-11-14 19:15 | P.PN ---
Date of Service: 11/14/21 Vital Signs Temp Pulse Resp BP Pulse Ox 96.9 F 67 19 120/58 L 97 11/14/21 16:00 11/14/21 16:00 11/14/21 16:00 11/14/21 16:00 11/14/21 16:00 Medications Acetaminophen (Acetaminophen 500 Mg Tab) 500 mg PO Q6H PRN PRN Reason: TEMP > 100.4' F OR MILD PAIN Last Admin: 11/12/21 18:45 Dose: 500 mg Documented by: Amlodipine Besylate (Amlodipine 10 Mg Tab) 10 mg PO DAILY [facility] Last Admin: 11/14/21 09:02 Dose: 10 mg Documented by: Aspirin (Aspirin Ec 81 Mg Tab) 81 mg PO DAILY [facility] Last Admin: 11/14/21 09:01 Dose: 81 mg Documented by: Calcitriol (Calcitrol 0.25 Mcg Cap) 0.5 mcg PO DAILY [facility] Last Admin: 11/14/21 09:01 Dose: 0.5 mcg Documented by: Calcium Acetate (Calcium Acetate 667 Mg Tab) 667 mg PO TIDWM [facility] Last Admin: 11/14/21 16:28 Dose: 667 mg Documented by: Carvedilol (Carvedilol 12.5 Mg Tab) 12.5 mg PO BID [facility] Last Admin: 11/14/21 09:02 Dose: 12.5 mg Documented by: Cholecalciferol (Vitamin D 5,000 Unit Cap) 5,000 unit PO DAILY [facility] Last Admin: 11/14/21 09:00 Dose: 5,000 unit Documented by: Coenzyme Q10 (Coenzyme Q10- 200 Mg Cap) 200 mg PO DAILY [facility] Last Admin: 11/14/21 09:03 Dose: 200 mg Documented by: Docusate Sodium (Docusate Na 100 Mg Cap) 100 mg PO BID [facility] Last Admin: 11/14/21 09:00 Dose: Not Given Documented by: Ferrous Sulfate (Ferrous Sulfate 325 Mg Tab) 325 mg PO M,W,F [facility] Last Admin: 11/14/21 16:28 Dose: 325 mg Documented by: Heparin Sodium (Porcine) (Heparin 1,000 Unit/Ml Vial) 6,000 unit IV EVERY HD PRN PRN Reason: AFTER EACH Albumin Human (Albumin 25%) 50 mls @ 100 mls/hr IV EVERY HD [facility] Isosorbide Mononitrate (Isosorbide [place] Sr 60 Mg Tab) 60 mg PO DAILY [facility] Last Admin: 11/14/21 09:01 Dose: 60 mg Documented by: Levetiracetam (Levetiracetam 500 Mg Tab) 250 mg PO BID [facility] Last Admin: 11/14/21 09:02 Dose: 250 mg Documented by: Levothyroxine Sodium (Levothyroxine Sod 0.125 Mg Tab) 0.125 mg PO [id number] [facility] Last Admin: 11/14/21 05:22 Dose: 0.125 mg Documented by: Mannitol (Mannitol 25% 12.5 Gm/50 Ml Vial) 12.5 gm IV EVERY HD PRN PRN Reason: PRN FOR BP SUPPORT AT HD Ondansetron HCl (Ondansetron 4 Mg/2 Ml Vial) 4 mg IV Q8H PRN PRN Reason: NAUSEA / VOMITING Pantoprazole Sodium (Pantoprazole 40mg Tablet) 40 mg PO [id number] [facility]; Protocol Last Admin: 11/14/21 05:22 Dose: 40 mg Documented by: Sodium Chloride (Flush Normal Saline 10 Ml) 10 ml IV BID [facility] Last Admin: 11/14/21 09:00 Dose: 10 ml Documented by: Vitamin B Complex/Vit C/Folic Acid (Multivitamins,Therapeut 1 Tab) 1 tab PO DAILY [facility] Last Admin: 11/14/21 09:03 Dose: 1 tab Documented by: Assessment/ Plan: Nephrology No dyspnea No chest pain No acute events overnight Vitals, medications, blood work and imaging reviewed in the chart. General: In no apparent distress, Cooperative HEENT: Atraumatic Neck: Supple Respiratory: Clear to auscultation bilaterally Cardiovascular: No edema, Regular rate/rhythm Gastrointestinal: Soft and benign, Non-distended Musculoskeletal: No clubbing, No contractures Integumentary: No rashes, No cyanosis Neurological: Normal speech Urinary: Dialysis catheter Laboratory Data (last 24 hrs) 11/12/21 09:11: PT 10.9, INR 0.95 11/12/21 09:11: WBC 4.70, Hgb 7.7 L, Hct 23.3 L, Plt Count 174 11/12/21 09:11: Sodium 143, Potassium 4.8, BUN 95 H, Creatinine 6.92 H*, Glucose 103, Magnesium 2.1, Total Bilirubin 0.3, AST 9 L, ALT 11 L, Alkaline Phosphatase 77 Imagings Data: EXAM DESCRIPTION: RAD - Chest Single View - 11/12/2021 12:40 pm CLINICAL HISTORY: Status post Tesio catheter placement Chest pain. COMPARISON: No comparisons FINDINGS: Portable technique limits examination quality. Right-sided venous catheter is in place with tip in the SVC. No postprocedure pneumothorax. Conclusions/Impression: ESRD -HD initiated 11-12-20 -Hepatitis panel pending -Social service consult for HD placement HTN with CKD/ CHF -Monitor BP Diastolic CHF, chronic -HD with UF -Continue CoEQ10 DM II with CKD -Low sugar diet Anemia in CKD -Retacrit TIW CKD MBD -Continue Calcitriol -Continue Cholecalciferol -Continue Phoslo
[2021-11-15] MEDS: LEVOTHYROXINE SOD 0.125 MG TAB PO SCH (05:56)
[2021-11-15] MEDS: PANTOPRAZOLE 40MG TABLET PO SCH (05:56)
[2021-11-15 06:32] LABS: Hematocrit 21.2 % (36.0-45.0); Lymphocytes % 17.9 % (15.3-44.8); MPV 8.1 fL (7.6-11.3); RBC Red Blood Cell Count 2.29 M/uL (3.86-4.86)
[2021-11-15 06:47] LABS: Potassium 4.3 mmol/L (3.5-5.1)
[2021-11-15] MEDS: DOCUSATE NA 100 MG CAP PO SCH ×2 (08:18→20:37)
[2021-11-15] MEDS: AMLODIPINE 10 MG TAB PO SCH (08:19)
[2021-11-15] MEDS: CALCIUM ACETATE 667 MG TAB PO SCH ×3 (08:19→16:37)
[2021-11-15] MEDS: ASPIRIN EC 81 MG TAB PO SCH (08:19)
[2021-11-15] MEDS: levETIRAcetam 500 MG TAB PO SCH ×2 (08:19→20:37)
[2021-11-15] MEDS: ISOSORBIDE MONO SR 60 MG TAB PO SCH (08:19)
[2021-11-15] MEDS: MULTIVITAMINS,THERAPEUT 1 TAB PO SCH (08:19)
[2021-11-15] MEDS: COENZYME Q10- 200 MG CAP PO SCH (08:19)
[2021-11-15] MEDS: CALCITROL 0.25 MCG CAP PO SCH (08:20)
[2021-11-15] MEDS: VITAMIN D 5,000 UNIT CAP PO SCH (08:21)
[2021-11-15] MEDS: carvediloL 12.5 MG TAB PO SCH (08:23)
--- NOTE | 2021-11-15 11:31 | P.PN ---
Date of Service: 11/13/21 Subjective: Doing well; no new c/o Objective: - Vital Signs reviewed - Physical Exam General: Alert, In no apparent distress, Oriented x3 Respiratory: Diminished, Crackles/rales Cardiovascular: Regular rate/rhythm, Normal S1 S2, No murmurs Gastrointestinal: Normal bowel sounds, Soft and benign, Non-distended, No tenderness Musculoskeletal: No clubbing, No swelling, No tenderness Neurological: Normal gait, Normal speech, Normal strength at 5/5 x4 extr, Normal tone, Sensation intact, Cranial nerves 3-12 intact, Normal affect Assessment & Plan - Problems (Diagnosis) (1) End-stage renal disease needing dialysis Current Visit: Yes Status: Acute (2) Chest discomfort Current Visit: Yes Status: Acute (3) Volume overload Current Visit: Yes Status: Acute (4) Uremia Current Visit: Yes Status: Acute - Plan Continue with current POC: 1. Started HD 2. Monitor labs 3. Arrange for outpatient hemodialysis with case management 4. GI DVT prophylaxis Discharge Plan: Home Plan to discharge in: Greater than 2 days - Advance Directives Does patient have a Living Will: No Does patient have a Durable POA for Healthcare: No - Code Status/Comfort Care Code Status Assessed: Yes Code Status: Full Code Critical Care: No Time Spent Managing PTS Care (In Minutes): 45
--- NOTE | 2021-11-15 11:32 | P.PN ---
Date of Service: 11/14/21 Subjective: No new changes; tolerating HD; awaiting chair time Objective: - Vital Signs reviewed - Physical Exam General: Alert, In no apparent distress, Oriented x3 Respiratory: Diminished, Crackles/rales Cardiovascular: Regular rate/rhythm, Normal S1 S2, No murmurs Gastrointestinal: Normal bowel sounds, Soft and benign, Non-distended, No tenderness Musculoskeletal: No clubbing, No swelling, No tenderness Neurological: Normal gait, Normal speech, Normal strength at 5/5 x4 extr, Normal tone, Sensation intact, Cranial nerves 3-12 intact, Normal affect Assessment & Plan - Problems (Diagnosis) (1) End-stage renal disease needing dialysis Current Visit: Yes Status: Acute (2) Chest discomfort Current Visit: Yes Status: Acute (3) Volume overload Current Visit: Yes Status: Acute (4) Uremia Current Visit: Yes Status: Acute - Plan Continue with current POC: 1. Started HD 2. Monitor labs 3. Arrange for outpatient hemodialysis with case management 4. GI DVT prophylaxis Discharge Plan: Home Plan to discharge in: Greater than 2 days - Advance Directives Does patient have a Living Will: No Does patient have a Durable POA for Healthcare: No - Code Status/Comfort Care Code Status Assessed: Yes Code Status: Full Code Critical Care: No Time Spent Managing PTS Care (In Minutes): 45
--- NOTE | 2021-11-15 11:33 | P.PN ---
Date of Service: 11/15/21 Subjective: Planning to discharge after chair time arranged; Hepatitis panel pending Objective: - Vital Signs reviewed - Physical Exam General: Alert, In no apparent distress, Oriented x3 Respiratory: Clear bilaterally Cardiovascular: Regular rate/rhythm, Normal S1 S2, No murmurs Gastrointestinal: Normal bowel sounds, Soft and benign, Non-distended, No tenderness Musculoskeletal: No clubbing, No swelling, No tenderness Neurological: Normal gait, Normal speech, Normal strength at 5/5 x4 extr, Normal tone, Sensation intact, Cranial nerves 3-12 intact, Normal affect Assessment & Plan - Problems (Diagnosis) (1) End-stage renal disease needing dialysis Current Visit: Yes Status: Acute (2) Chest discomfort Current Visit: Yes Status: Acute (3) Volume overload Current Visit: Yes Status: Acute (4) Uremia Current Visit: Yes Status: Acute - Plan Continue with current POC: 1. Tolerating HD 2. Monitor labs 3. Arrange for outpatient hemodialysis with case management 4. GI DVT prophylaxis Discharge Plan: Home Plan to discharge in: Greater than 2 days - Advance Directives Does patient have a Living Will: No Does patient have a Durable POA for Healthcare: No - Code Status/Comfort Care Code Status Assessed: Yes Code Status: Full Code Critical Care: No Time Spent Managing PTS Care (In Minutes): 45
[2021-11-15 12:02] LABS: HBsAG Nonreactive (Nonreactive)
--- NOTE | 2021-11-15 20:54 | P.PN ---
Date of Service: 11/15/21 Vital Signs Temp Pulse Resp BP Pulse Ox 97.9 F 70 17 139/67 97 11/15/21 20:00 11/15/21 20:00 11/15/21 20:00 11/15/21 20:00 11/15/21 20:00 Medications Acetaminophen (Acetaminophen 500 Mg Tab) 500 mg PO Q6H PRN PRN Reason: TEMP > 100.4' F OR MILD PAIN Last Admin: 11/12/21 18:45 Dose: 500 mg Documented by: Aspirin (Aspirin Ec 81 Mg Tab) 81 mg PO DAILY [facility] Last Admin: 11/15/21 08:19 Dose: 81 mg Documented by: Calcitriol (Calcitrol 0.25 Mcg Cap) 0.5 mcg PO DAILY [facility] Last Admin: 11/15/21 08:20 Dose: 0.5 mcg Documented by: Calcium Acetate (Calcium Acetate 667 Mg Tab) 667 mg PO TIDWM [facility] Last Admin: 11/15/21 16:37 Dose: 667 mg Documented by: Cholecalciferol (Vitamin D 5,000 Unit Cap) 5,000 unit PO DAILY [facility] Last Admin: 11/15/21 08:21 Dose: 5,000 unit Documented by: Coenzyme Q10 (Coenzyme Q10- 200 Mg Cap) 200 mg PO DAILY [facility] Last Admin: 11/15/21 08:19 Dose: 200 mg Documented by: Docusate Sodium (Docusate Na 100 Mg Cap) 100 mg PO BID [facility] Last Admin: 11/15/21 20:37 Dose: 100 mg Documented by: Ferrous Sulfate (Ferrous Sulfate 325 Mg Tab) 325 mg PO M,W,F [facility] Last Admin: 11/14/21 16:28 Dose: 325 mg Documented by: Heparin Sodium (Porcine) (Heparin 1,000 Unit/Ml Vial) 6,000 unit IV EVERY HD PRN PRN Reason: AFTER EACH Last Admin: 11/15/21 13:46 Dose: 6,000 unit Documented by: Albumin Human (Albumin 25%) 50 mls @ 100 mls/hr IV EVERY HD [facility] Isosorbide Mononitrate (Isosorbide [place] Sr 60 Mg Tab) 60 mg PO DAILY [facility] Last Admin: 11/15/21 08:19 Dose: 60 mg Documented by: Levetiracetam (Levetiracetam 500 Mg Tab) 250 mg PO BID [facility] Last Admin: 11/15/21 20:37 Dose: 250 mg Documented by: Levothyroxine Sodium (Levothyroxine Sod 0.125 Mg Tab) 0.125 mg PO [id number] [facility] Last Admin: 11/15/21 05:56 Dose: 0.125 mg Documented by: Mannitol (Mannitol 25% 12.5 Gm/50 Ml Vial) 12.5 gm IV EVERY HD PRN PRN Reason: PRN FOR BP SUPPORT AT HD Ondansetron HCl (Ondansetron 4 Mg/2 Ml Vial) 4 mg IV Q8H PRN PRN Reason: NAUSEA / VOMITING Pantoprazole Sodium (Pantoprazole 40mg Tablet) 40 mg PO [id number] [facility]; Protocol Last Admin: 11/15/21 05:56 Dose: 40 mg Documented by: Sodium Chloride (Flush Normal Saline 10 Ml) 10 ml IV BID [facility] Last Admin: 11/15/21 20:38 Dose: 10 ml Documented by: Vitamin B Complex/Vit C/Folic Acid (Multivitamins,Therapeut 1 Tab) 1 tab PO DAILY [facility] Last Admin: 11/15/21 08:19 Dose: 1 tab Documented by: Lab Results (last 24 hrs) 11/12/21 09:11: Hepatitis A IgM Ab Nonreactive, Hep Bs Antigen Nonreactive, Hep B Core IgM Ab Nonreactive, Hepatitis C Antibody Nonreactive, Hep C Ab Signal/Cutoff 0.00 Assessment/ Plan: Nephrology No dyspnea No chest pain No acute events overnight Vitals, medications, blood work and imaging reviewed in the chart. General: In no apparent distress, Cooperative HEENT: Atraumatic Neck: Supple Respiratory: Clear to auscultation bilaterally Cardiovascular: No edema, Regular rate/rhythm Gastrointestinal: Soft and benign, Non-distended Musculoskeletal: No clubbing, No contractures Integumentary: No rashes, No cyanosis Neurological: Normal speech Urinary: Dialysis catheter Laboratory Data (last 24 hrs) 11/12/21 09:11: PT 10.9, INR 0.95 11/12/21 09:11: WBC 4.70, Hgb 7.7 L, Hct 23.3 L, Plt Count 174 11/12/21 09:11: Sodium 143, Potassium 4.8, BUN 95 H, Creatinine 6.92 H*, Glucose 103, Magnesium 2.1, Total Bilirubin 0.3, AST 9 L, ALT 11 L, Alkaline Phosphatase 77 Imagings Data: EXAM DESCRIPTION: RAD - Chest Single View - 11/12/2021 12:40 pm CLINICAL HISTORY: Status post Tesio catheter placement Chest pain. COMPARISON: No comparisons FINDINGS: Portable technique limits examination quality. Right-sided venous catheter is in place with tip in the SVC. No postprocedure pneumothorax. Conclusions/Impression: ESRD -HD initiated 11-12-20 -Hepatitis panel pending -Social service consult for HD placement HTN with CKD/ CHF -Monitor BP Diastolic CHF, chronic -HD with UF -Continue CoEQ10 DM II with CKD -Low sugar diet Anemia in CKD -Retacrit TIW CKD MBD -Continue Calcitriol -Continue Cholecalciferol -Continue Phoslo Case reviewed with Dr. Rebolledo
[2021-11-16] MEDS: PANTOPRAZOLE 40MG TABLET PO SCH (06:00)
[2021-11-16] MEDS: LEVOTHYROXINE SOD 0.125 MG TAB PO SCH (06:00)
[2021-11-16 06:16] LABS: Absolute Lymphocytes (CBC) 0.9 K/uL (0.7-4.9); Hematocrit 21.5 % (36.0-45.0); Lymphocytes % 15.4 % (15.3-44.8); MPV 8.6 fL (7.6-11.3); RBC Red Blood Cell Count 2.32 M/uL (3.86-4.86)
[2021-11-16 06:39] LABS: AST/SGOT 11 U/L (15-37); Albumin 2.8 g/dL (3.4-5.0); Alkaline Phosphatase 72 U/L (45-117); BUN Blood Urea Nitrogen 32 mg/dL (7-18); Bicarbonate 27 mmol/L (21-32); Bilirubin Total 0.3 mg/dL (0.2-1.0); Glucose Level 93 mg/dL (74-106); Magnesium 2.2 mg/dL (1.8-2.4); Potassium 4.3 mmol/L (3.5-5.1); Protein, Total 5.7 g/dL (6.4-8.2); Sodium Level 140 mmol/L (136-145)
[2021-11-16 06:41] LABS: ALT/SGPT < 10 U/L (12-78)
[2021-11-16] MEDS: CALCIUM ACETATE 667 MG TAB PO SCH ×3 (08:39→16:38)
[2021-11-16] MEDS: ISOSORBIDE MONO SR 60 MG TAB PO SCH (08:39)
[2021-11-16] MEDS: MULTIVITAMINS,THERAPEUT 1 TAB PO SCH (08:39)
[2021-11-16] MEDS: levETIRAcetam 500 MG TAB PO SCH (08:40)
[2021-11-16] MEDS: VITAMIN D 5,000 UNIT CAP PO SCH (08:41)
[2021-11-16] MEDS: CALCITROL 0.25 MCG CAP PO SCH (08:41)
[2021-11-16] MEDS: DOCUSATE NA 100 MG CAP PO SCH (08:42)
[2021-11-16] MEDS: ASPIRIN EC 81 MG TAB PO SCH (08:42)
[2021-11-16] MEDS: COENZYME Q10- 200 MG CAP PO SCH (08:42)
[2021-11-16] MEDS ORDERED: EPOETIN ALFA 10,000 UNIT/ML VIAL SQ SCH (09:00)
[2021-11-16 12:17] VITALS: BP 137/62; TEMP 97
--- NOTE | 2021-11-16 13:22 | ECHO ---
HEIGHT: 5 ft 3 in WEIGHT: 193 lb 3.2 oz DATE OF STUDY: 11/16/[address]: Sina Rebolledo MD 2-DIMENSIONAL: YES M.MODE: YES DOPPLER: YES COLOR FLOW: YES TDS: NO PORTABLE: NO DEFINITY: NO BUBBLE STUDY: NO DIAGNOSIS: BRADYCARDIA CARDIAC HISTORY: CATHERIZATION: NO SURGERY: NO PROSTHETIC VALVE: NO PACEMAKER: NO MEASUREMENTS (cm) DIASTOLIC (NORMALS) SYSTOLIC (NORMALS) IVSd 1.2 (0.6-1.2) LA Diam 3.3 (1.9-4.0) LVEF 54% LVIDd 5.4 (3.5-5.7) LVIDs 3.9 (2.0-3.5) %FS 28% LVPWd 1.3 (0.6-1.2) Ao Diam 2.9 (2.0-3.7) 2 DIMENSIONAL ASSESSMENT: RIGHT ATRIUM: NORMAL LEFT ATRIUM: NORMAL RIGHT VENTRICLE: NORMAL LEFT VENTRICLE: LEFT VENTRICULAR HYPERTROPHY TRICUSPID VALVE: NORMAL MITRAL VALVE: MITRAL ANNULAR CALCIFICATION PULMONIC VALVE: NORMAL AORTIC VALVE: SCLEROSIS PERICARDIAL EFFUSION: NONE AORTIC ROOT: NORMAL LEFT VENTRICULAR WALL MOTION: NORMAL LEFT VENTRICULAR EJECTION FRACTION. DECREASED LEFT VENTRICULAR COMPLIANCE. DOPPLER/COLOR FLOW: NORMAL COMMENTS: DIASTOLIC DYSFUNCTION. LEFT VENTRICULAR HYPERTROPHY. NORMAL LEFT VENTRICULAR EJECTION FRACTION. MITRAL ANNULAR CALCIFICATION. AORTIC SCLEROSIS WITH NO STENOSIS. TECHNOLOGIST: Emily GUILLERMO
[2021-11-16] MEDS: FERROUS SULFATE 325 MG TAB PO SCH (16:37)
[2021-11-16 16:54] VITALS: O2SAT 97
--- NOTE | 2021-11-16 21:41 | P.PN ---
Date of Service: 11/16/21 Vital Signs Temp Pulse Resp BP Pulse Ox 97 F 69 18 137/62 99 11/16/21 12:00 11/16/21 12:00 11/16/21 12:00 11/16/21 12:00 11/16/21 12:00 Assessment/ Plan: Nephrology No dyspnea No chest pain No acute events overnight Vitals, medications, blood work and imaging reviewed in the chart. General: In no apparent distress, Cooperative HEENT: Atraumatic Neck: Supple Respiratory: Clear to auscultation bilaterally Cardiovascular: No edema, Regular rate/rhythm Gastrointestinal: Soft and benign, Non-distended Musculoskeletal: No clubbing, No contractures Integumentary: No rashes, No cyanosis Neurological: Normal speech Urinary: Dialysis catheter Laboratory Data (last 24 hrs) 11/12/21 09:11: PT 10.9, INR 0.95 11/12/21 09:11: WBC 4.70, Hgb 7.7 L, Hct 23.3 L, Plt Count 174 11/12/21 09:11: Sodium 143, Potassium 4.8, BUN 95 H, Creatinine 6.92 H*, Glucose 103, Magnesium 2.1, Total Bilirubin 0.3, AST 9 L, ALT 11 L, Alkaline Phosphatase 77 Imagings Data: EXAM DESCRIPTION: RAD - Chest Single View - 11/12/2021 12:40 pm CLINICAL HISTORY: Status post Tesio catheter placement Chest pain. COMPARISON: No comparisons FINDINGS: Portable technique limits examination quality. Right-sided venous catheter is in place with tip in the SVC. No postprocedure pneumothorax. Conclusions/Impression: ESRD -HD initiated 11-12-20 -Hepatitis panel negative -HD placement Grace Alfonso HTN with CKD/ CHF -Monitor BP Diastolic CHF, chronic -HD with UF -Continue CoEQ10 DM II with CKD -Low sugar diet Anemia in CKD -Retacrit TIW CKD MBD -Continue Calcitriol -Continue Cholecalciferol -Continue Phoslo Case reviewed with Dr. Rebolledo Follow up with Dr. Key as scheduled
--- NOTE | 2021-11-16 23:59 | CON ---
Date of Consultation: 11/16/2021 Reason For Consultation: Bradycardia during sleep and during dialysis. History Of Present Illness: The patient is 86 years old. She just started dialysis. She has a hist ory of diabetes, hypertension, hypothyroidism, dyslipidemia. She had an angioplasty in 1992. She courtney s a history of COPD and new onset renal failure and on dialysis, a new shunt placed. I was consulted because of bradycardia during her dialysis. At one point when she was asleep, her heart rate would go down into the 20s without any symptoms or hemodynamic compromise. Allergies: NONE. Review of Systems: Negative. Social History: Negative. Family History: Negative. Medications: At home include metoprolol, Imdur, thyroid, cholesterol, and metformin. Physical Examination: Vital Signs: Were stable, afebrile, sinus rhythm. HEENT: Negative. Neck: Supple without any bruit, lymphadenopathy, JVD, or thyromegaly. Chest: Clear. Cardiac: Revealed a regular rhythm and rate with an aortic sclerosis murmur. No gallops or rubs. Abdomen: Benign. Extremities: Revealed no clubbing, cyanosis, or edema. Diagnostic Data: Showed hemoglobin of 7.2. Her creatinine was 3.84. Her echocardiogram which was d one showed an ejection fraction of 54%, with aortic valve sclerosis, mitral annular calcification. N ormal ejection fraction, some diastolic dysfunction. Impression And Plan: Bradycardia, more likely secondary to vasovagal reaction from the dialysis or s leep apnea. Nevertheless, there is no hemodynamic compromise. No need for a pacemaker. She is taki ng a beta-yang, and I think I would definitely decrease her beta yang by half. Otherwise, she is cleared for dialysis. She will follow up with Dr. Ovalles, and she has a followup with me down [address] if she wants to. She normally sees Dr. Key, and she has an appointment with him on the of this month. Again, no change in medical therapy, except decreasing the beta-yang by half. If she becomes symptomatic with her bradycardia, we will readdress the issue. PAGE/LA Voice ID: [id number] Report ID: [id number]
== END 2021-11-16 17:35 | disposition home or self-care (01) | DRG 291 ==
LOC: ER 08:14 → OR 10:58 → 2ND 12:44
PROVIDERS: ADMIT Hospitalist; ATTEND Hospitalist
PROC: B513YZA Fluoroscopy of Right Jugular Veins using Other Contrast, Guidance (ICD-10-PCS; 2021-11-12)
PROC: 5A1D70Z Performance of Urinary Filtration, Intermittent, Less than 6 Hours Per Day (ICD-10-PCS; 2021-11-12)
PROC: 05HM33Z Insertion of Infusion Device into Right Internal Jugular Vein, Percutaneous Approach (ICD-10-PCS; principal; 2021-11-12 11:15)
PROC: 5A1D70Z Performance of Urinary Filtration, Intermittent, Less than 6 Hours Per Day (ICD-10-PCS; 2021-11-13)
PROC: 5A1D70Z Performance of Urinary Filtration, Intermittent, Less than 6 Hours Per Day (ICD-10-PCS; 2021-11-15)
DX: I13.2 Hypertensive heart and chronic kidney disease with heart failure and with stage 5 chronic kidney disease, or end stage renal disease (principal); N18.6 End stage renal disease; E11.22 Type 2 diabetes mellitus with diabetic chronic kidney disease; I50.32 Chronic diastolic (congestive) heart failure; D63.1 Anemia in chronic kidney disease; E03.9 Hypothyroidism, unspecified; I25.10 Atherosclerotic heart disease of native coronary artery without angina pectoris; J44.9 Chronic obstructive pulmonary disease, unspecified; R00.1 Bradycardia, unspecified; I25.2 Old myocardial infarction; Z20.822 Contact with and (suspected) exposure to COVID-19
CPT/HCPCS: 36415; 71045; 76000; 80048; 80053; 80074; 80076; 82607; 82746; 82947; 83540; 83735; 83880; 84100; 84439; 84443; 84466; 84484; 84550; 85025; 85610; 85730; 86317; 86704; 86706; 86850; 86900; 86901; 90935; 93005; 93306; 97110; 97116; 97161; 97530; 99285; C1752; J0690; J1100; J1644; J2250; J2405; J3010; J7040; Q5105; Q5106; U0003

== ENCOUNTER 2022-03-01 18:13 | Emergency (ER) | payer OTHER ==
--- NOTE | 2022-03-01 20:43 | ER ---
Nurse's Notes [facility] Name: Carly Baeza Age: 86 yrs Sex: Female : 1935 Arrival Date: 03/01/2022 Time: 18:16 Bed 10 Private MD: Diagnosis: Person with feared health complaint in whom no diagnosis is made Presentation: 03/01 20:19 Chief complaint: Patient states: she had dialysis today finished around 1700 . Went fu home but she was freezing, chills and numbness of fingers. Called dialysis center and advised to go to ER. Coronavirus screen: Vaccine status: Patient reports receiving the 2nd dose of the covid vaccine. Ebola Screen: No symptoms or risks identified at this time. Initial Sepsis Screen: Does the patient meet any 2 criteria? No. Patient's initial sepsis screen is negative. Does the patient have a suspected source of infection? No. Patient's initial sepsis screen is negative. Risk Assessment: Do you want to hurt yourself or someone else? Patient reports no desire to harm self or others. Onset of symptoms was March 01, 2022. 20:19 Method Of Arrival: Wheelchair fu 20:19 Acuity: SHELLY 3 fu Historical: - Allergies: 20:22 Levaquin; fu 20:22 Morphine; fu - PMHx: 20:22 CAD; COPD; Diabetes - NIDDM; End stage renal disease; High Cholesterol; Hypertension; fu Hypothyroidism; Myocardial infarction; - PSHx: 20:22 dialysis catheter placement; fu - Immunization history:: Adult Immunizations up to date. - Social history:: Smoking status: unknown. Screenin:25 Abuse screen: Denies threats or abuse. Nutritional screening: No deficits noted. fu Tuberculosis screening: No symptoms or risk factors identified. Fall Risk None identified. Assessment: 20:23 General: Appears comfortable. General: Behavior is calm, Reports chills for 0-12 hours. fu Pain: Denies pain. Neuro: Level of Consciousness is awake, alert, obeys commands, Oriented to person, place, time, situation. Derm: dialysis catheter to right upper chest and dialysis access to right upper arm. 20:42 Reassessment: Patient is alert, oriented x 3, equal unlabored respirations, skin fu warm/dry/pink. Patient states feeling better. Vital Signs: 20:04 BP 132 / 61; Pulse 103; Resp 19; Temp 98.5(O); Pulse Ox 98% on R/A; fu ED Course: 18:16 Patient arrived in ED. bp1 19:25 Delmy Sam, RN is Primary Nurse. ld1 19:26 Patient's name was called from ER lobby. No response. lp1 19:53 Adri[facility] Christopher [facility]C [facility] kb 19:53 Ok Park MD is Attending Physician. kb 19:54 Eriberto Torres, RN is Primary Nurse. fu 20:22 Triage completed. fu 20:25 No provider procedures requiring assistance completed. fu 20:43 Patient has correct armband on for positive identification. Call light in reach. Side fu rails up X2. 20:43 Patient did not have IV access during this emergency room visit. fu Administered Medications: No medications were administered Medication: 20:55 VIS not applicable for this client. fu Outcome: 20:43 Discharge ordered by MD. kb 21:01 Discharged to home via wheelchair. fu 21:01 Condition: good 21:01 Discharge instructions given to patient, Instructed on discharge instructions, follow up and referral plans. Demonstrated understanding of instructions, Prescriptions given X 0 21:02 Patient left the ED. fu Signatures: Adriana Christopher FNP-C FNP-Tierra Hall, JARET RN lp1 Eriberto Torres, RN RN Anya Freitas bp1 Delmy Sam, RN RN ld1
--- NOTE | 2022-03-01 20:43 | EDPHYS ---
Physician Documentation [facility] Name: Carly Baeza Age: 86 yrs Sex: Female : 1935 Arrival Date: 03/01/2022 Time: 18:16 Bed 10 Private MD: ED Physician Ok Park HPI: 03/02 00:52 This 86 yrs old Female presents to ER via Wheelchair with complaints of Shaky, kb Cold. 00:52 Pt reports she got out of dialysis and was cold and shaky. States she felt tingling in kb her fingertips. Told the dialysis nurse and was told to come to the ER. States she feels fine now and just wants to go home to sleep. . Onset: The symptoms/episode began/occurred just prior to arrival. Severity of symptoms: At their worst the symptoms were mild in the emergency department the symptoms have resolved. The patient has not experienced similar symptoms in the past. The patient has not recently seen a physician. Pt reports she didn't take her bp medication this morning because she was told not to take it on dialysis days due to hypotension. States her bp was high during dialysis so they stopped for a while until it came down, then finished. States she hadn't eaten all day so it could have been her sugar dropping that made her feel shaky. States "I'm just cold natured too so it could just be that. I'm not cold now.". Historical: - Allergies: 03/01 20:22 Levaquin; fu 20:22 Morphine; fu - PMHx: 20:22 CAD; COPD; Diabetes - NIDDM; End stage renal disease; High Cholesterol; Hypertension; fu Hypothyroidism; Myocardial infarction; - PSHx: 20:22 dialysis catheter placement; fu - Immunization history:: Adult Immunizations up to date. - Social history:: Smoking status: unknown. ROS: 03/02 00:54 Constitutional: Negative for fever, chills, and weight loss. kb All other systems are negative. Exam: 00:54 Constitutional: This is a well developed, well nourished patient who is awake, alert, kb and in no acute distress. Head/Face: Normocephalic, atraumatic. ENT: Moist Mucous membranes Cardiovascular: Regular rate and rhythm with a normal S1 and S2. No gallops, murmurs, or rubs. No pulse deficits. Respiratory: Respirations even and unlabored. No increased work of breathing. Talking in full sentences Abdomen/GI: Soft, non-tender. No distention Skin: Warm, dry with normal turgor. Normal color. MS/ Extremity: Pulses equal, no cyanosis. Neurovascular intact. Full, normal range of motion. Neuro: Awake and alert, GCS 15, oriented to person, place, time, and situation. Moves all extremities. Normal gait. Psych: Awake, alert, with orientation to person, place and time. Behavior, mood, and affect are within normal limits. Vital Signs: 03/01 20:04 BP 132 / 61; Pulse 103; Resp 19; Temp 98.5(O); Pulse Ox 98% on R/A; fu MDM: 19:53 Patient medically screened. kb 03/02 00:54 Data reviewed: vital signs, nurses notes. Data interpreted: Pulse oximetry: on room air kb is 98 %. Interpretation: normal. Counseling: I had a detailed discussion with the patient and/or guardian regarding: the historical points, exam findings, and any diagnostic results supporting the discharge/admit diagnosis, the need for outpatient follow up, a family practitioner, to return to the emergency department if symptoms worsen or persist or if there are any questions or concerns that arise at home. ED course: Pt does not want any other testing at this time including covid test. States she feels fine and wants to go home. 03/01 20:26 Order name: Glucose, Ancillary Testing; Complete Time: 20:43 EDME 03/01 20:07 Order name: Blood Glucose Level; Complete Time: 20:13 kb Administered Medications: No medications were administered Disposition: 07:53 Co-signature as Attending Physician, Ok Park MD. [email or web address] Disposition Summary: 03/01/22 20:43 Discharge Ordered Location: Home kb Condition: Stable kb Diagnosis - Person with feared health complaint in whom no diagnosis is made kb Followup: kb - With: Emergency Department - When: As needed - Reason: Worsening of condition Followup: kb - With: Private Physician - When: 2 - 3 days - Reason: Recheck today's complaints, Continuance of care, Re-evaluation by your physician Forms: - Medication Reconciliation Form kb - Thank You Letter kb - Antibiotic Education kb - Prescription Opioid Use kb Signatures: Adriana Christopher, GOVERNMENT PROPERTY INSPECTOR-C GOVERNMENT PROPERTY INSPECTOR-Ckb Eriberto Torres, RN RN Ok Lopes MD MD [email or web address]
[2022-03-01 21:25] VITALS: BP 132/61; TEMP 98.5; O2SAT 98
== END 2022-03-01 21:02 | disposition home or self-care (01) ==
LOC: ER 18:13
DX: Z71.1 Person with feared health complaint in whom no diagnosis is made (principal)
CPT/HCPCS: 82947; 99282

== ENCOUNTER 2023-01-07 17:37 | Emergency (ER) | payer OTHER ==
[2023-01-07 19:11] LABS: Absolute Lymphocytes (CBC) 1.8 K/uL (0.7-4.9); Hematocrit 37.2 % (36.0-45.0); Lymphocytes % 20.6 % (15.3-44.8); MCV 101.5 fL (80-100); MPV 7.2 fL (7.6-11.3); RBC Red Blood Cell Count 3.66 M/uL (3.86-4.86)
--- NOTE | 2023-01-07 19:13 | RAD REPORT ---
EXAM DESCRIPTION: RAD - Chest Single View - 01/07/2023 6:49 pm CLINICAL HISTORY: CHEST PAIN COMPARISON: Chest Single View dated 11/12/2021 FINDINGS: Lines: None. Lungs: No evidence of edema or pneumonia. Pleural: No significant pleural effusions or pneumothorax. Cardiac: The heart size is within normal limits. Mediastinum: Within normal limits. Bones: No acute fractures. Other: None IMPRESSION: No acute cardiopulmonary disease.
[2023-01-07 19:39] LABS: Albumin 3.1 g/dL (3.4-5.0); Bilirubin Total 0.4 mg/dL (0.2-1.0); Potassium 3.4 mEq/L (3.5-5.1); Protein, Total 6.5 g/dL (6.4-8.2)
--- NOTE | 2023-01-07 20:16 | EDPHYS ---
Physician Documentation [facility] Name: Carly Baeza Age: 87 yrs Sex: Female : 1935 Arrival Date: 01/07/2023 Time: 17:37 Bed 20 Private MD: ED Physician Peter Kay HPI: 01/07 18:03 This 87 yrs old Female presents to ER via Wheelchair with complaints of Near bs3 Syncope, High Blood Pressure, Blood Pressure Problem. 18:03 The patient has experienced near-syncope, Duchesne vision closing in. Onset: The bs3 symptoms/episode began/occurred suddenly, just prior to arrival. Duration: This was a single episode, that lasted 2 minute(s). Context: the episode(s) was witnessed, by family, occurred in car. Associated injury: The patient did not suffer any apparent associated injury. Associated signs and symptoms: The patient has no apparent associated signs or symptoms. Current symptoms: Currently, the patient is not experiencing any symptoms. The patient has experienced a previous episode. 87-year-old female history of CAD, COPD, diabetes, ESRD on dialysis Friday last dialysis yesterday presents with the feeling like her vision is closing in she also has a history of hypotension on midodrine finally she notes that she does not eat a lot and had breakfast but did not have lunch she was running errands all day and was in the car for a while when she felt her vision closing and she felt like it was her right eye at first and then also her left eye she is not certain whether or not it was the lateral aspects of both eyes, or generalized vision of both eyes. No preceding courtney. She did not have associated palpitations shortness of breath abdominal pain headache she denies associated numbness tingling weakness or speech change it was witnessed by her daughter. She does have a history of TIA which was right hand weakness many years ago. Today's episode lasted <5 minutes and she now feels well. . Historical: - Allergies: 17:56 Levaquin; vg1 17:56 Morphine; vg1 - PMHx: 17:56 CAD; COPD; Diabetes - NIDDM; End stage renal disease; High Cholesterol; Hypertension; vg1 Hypothyroidism; Myocardial infarction; Dialysis MWF; - PSHx: 17:56 dialysis catheter placement; vg1 - Immunization history:: Client reports receiving the 2nd dose of the Covid vaccine. - Social history:: Smoking status: Patient denies any tobacco usage or history of. ROS: 18:03 Constitutional: Negative for fever, chills bs3 18:03 All other systems are negative. Exam: 18:03 Constitutional: This is a well developed, well nourished patient who is awake, alert, bs3 and in no acute distress. Head/Face: Normocephalic, atraumatic. Eyes: Pupils equal round and reactive to light, extra-ocular motions intact. Lids and lashes normal. ENT: mmm, no posterior phyarngeal erythema Neck: Trachea midline, no thyromegaly, no neck stiffness Chest/axilla: Normal chest wall appearance and motion. Nontender with no deformity. No lesions are appreciated. Cardiovascular: Regular rate and rhythm with a normal S1 and S2. symmetric pulses in upper extremities Respiratory: Lungs have equal breath sounds bilaterally, clear to auscultation, no respiratory distress Abdomen/GI: Soft, non-tender, no rebound or guarding Skin: Warm, dry with normal turgor. Normal color with no rashes, no lesions, and no evidence of cellulitis. MS/ Extremity: Pulses equal, no cyanosis. Neurovascular intact. Full, normal range of motion. Palpable thrill on right arm Neuro: Awake and alert, GCS 15, oriented to person, place, time, and situation. Cranial nerves II-XII grossly intact. Motor strength 5/5 in all extremities. Sensory grossly intact. NIH of 0, all visual villasenor intact, no pain to palpation over temporal region, no enlarged temporal arteries. Psych: Awake, alert, with orientation to person, place and time. Behavior, mood, and affect are within normal limits. 20:14 Normal sinus rhythm at [address] elevation or depression QTc 441 no WPW no Brugada no bs3 hokum Vital Signs: 17:47 BP 129 / 54; Pulse 80; Resp 16; Temp 98.3(O); Pulse Ox 99% on R/A; vg1 20:54 BP 119 / 51; Resp 18; nj1 MDM: 17:39 Patient medically screened. bs3 18:03 Differential Diagnosis: cardiac arrhythmia, idiopathic syncope, transient ischemic bs3 attack, vasovagal episode, possible hypotension related, . Data reviewed: vital signs, nurses notes. ED course: Considered TIA but she had no symptoms besides her vision closing in, she is now at baseline, her bp after the episode on her home monitor was low, possible multifactorial related to decreased po, and baseline hypotension, will check electroloytes, ekg, and reassess, we had a shared decision making conversation, given the symptoms, and characterisitic less likely tia and will not pursue this workup, but given very strict return prec, pt desire is to not be hospitalized. . 20:14 ED course: Patient remained stable in the emergency department her vitals continue to bs3 be normal she is feeling well return precautions given. 01/07 18:01 Order name: CBC with Diff; Complete Time: 19:19 bs3 01/07 18:01 Order name: Comprehensive Metabolic Panel; Complete Time: 19:44 bs3 01/07 18:01 Order name: XRAY Chest (1 view); Complete Time: 19:19 bs3 01/07 18:01 Order name: EKG - Nurse/Tech; Complete Time: 20:10 bs3 01/07 18:01 Order name: Monitor; Complete Time: 20:59 bs3 Administered Medications: No medications were administered Disposition Summary: 01/07/23 20:15 Discharge Ordered Location: Home bs3 Problem: new bs3 Symptoms: have improved bs3 Condition: Stable bs3 Diagnosis - Syncope Near bs3 Followup: bs3 - With: Private Physician - When: 48 Hours - Reason: Re-evaluation by your physician Discharge Instructions: - Discharge Summary Sheet bs3 - Syncope bs3 Forms: - Medication Reconciliation Form bs3 - Thank You Letter bs3 - Antibiotic Education bs3 - Prescription Opioid Use bs3 Signatures: Dispatcher [employer] Elizabeth Gotti, RN RN vg1 Peter Kay MD MD bs3
--- NOTE | 2023-01-07 20:16 | ER ---
Nurse's Notes [facility] Name: Carly Baeza Age: 87 yrs Sex: Female : 1935 Arrival Date: 01/07/2023 Time: 17:37 Bed 20 Private MD: Diagnosis: Syncope Near Presentation: 01/07 17:47 Chief complaint: Patient states: pt was sitting in car for about thirty minutes (with vg1 a/c on) and stated could see dark spots, pt was able to walk from car to the house and BP was taken, took three reads and pt daughter stated low systolic of 30, 40 and 90. Coronavirus screen: Vaccine status: Patient reports receiving the 2nd dose of the covid vaccine. Client denies travel out of the [place] in the last 14 days. Ebola Screen: Patient negative for fever greater than or equal to 101.5 degrees Fahrenheit, and additional compatible Ebola Virus Disease symptoms Patient denies exposure to infectious person. Patient denies travel to an Ebola-affected area in the 21 days before illness onset. Initial Sepsis Screen: Does the patient meet any 2 criteria? No. Patient's initial sepsis screen is negative. Does the patient have a suspected source of infection? No. Patient's initial sepsis screen is negative. Risk Assessment: Do you want to hurt yourself or someone else? Patient reports no desire to harm self or others. Onset of symptoms was January 07, 2023. 17:47 Method Of Arrival: Wheelchair vg1 17:47 Acuity: SHELLY 3 vg1 Triage Assessment: 17:56 General: Appears in no apparent distress. comfortable, Behavior is calm, cooperative. vg1 Pain: Denies pain. Neuro: Level of Consciousness is awake, alert, obeys commands, Oriented to person, place, time, situation, Gauge Maker are equal bilaterally Moves all extremities. Speech is normal, Facial symmetry appears normal. Cardiovascular: Patient's skin is warm and dry. Respiratory: Airway is patent Respiratory effort is even, unlabored. Historical: - Allergies: 17:56 Levaquin; vg1 17:56 Morphine; vg1 - PMHx: 17:56 CAD; COPD; Diabetes - NIDDM; End stage renal disease; High Cholesterol; Hypertension; vg1 Hypothyroidism; Myocardial infarction; Dialysis MWF; - PSHx: 17:56 dialysis catheter placement; vg1 - Immunization history:: Client reports receiving the 2nd dose of the Covid vaccine. - Social history:: Smoking status: Patient denies any tobacco usage or history of. Screenin:45 [facility] ED Fall Risk Assessment (Adult) History of falling in the last 3 months, nj1 including since admission No falls in past 3 months (0 pts) Confusion or Disorientation No (0 pts) Intoxicated or Sedated No (0 pts) Impaired Gait Yes (1 pt) Mobility Assist Device Used Yes (1 pt) Altered Elimination No (0 pt) Score/Fall Risk Level 0 - 2 = Low Risk Oriented to surroundings, Maintained a safe environment, Hourly rounding (assess needs \T\ fall precautionary measures) done. 19:45 Abuse screen: Denies threats or abuse. Denies injuries from another. Nutritional nj1 screening: No deficits noted. Tuberculosis screening: No symptoms or risk factors identified. Assessment: 19:45 Reassessment: Patient appears in no apparent distress at this time. Patient and/or nj1 family updated on plan of care and expected duration. Pain level reassessed. Patient is alert, oriented x 3, equal unlabored respirations, skin warm/dry/pink. See triage assessment. 20:54 Reassessment: Patient appears in no apparent distress at this time. Patient and/or nj1 family updated on plan of care and expected duration. Pain level reassessed. Patient is alert, oriented x 3, equal unlabored respirations, skin warm/dry/pink. Patient denies pain at this time. Patient states feeling better. Patient states symptoms have improved. Vital Signs: 17:47 BP 129 / 54; Pulse 80; Resp 16; Temp 98.3(O); Pulse Ox 99% on R/A; vg1 20:54 BP 119 / 51; Resp 18; nj1 ED Course: 17:38 Patient arrived in ED. am2 17:39 Peter Kay MD is Attending Physician. bs3 17:55 Triage completed. vg1 17:56 Arm band placed on. vg1 18:51 XRAY Chest (1 view) In Process Unspecified. EDMS 19:32 Jennifer Gonzales, JAERT is Primary Nurse. nj1 19:45 Patient has correct armband on for positive identification. Bed in low position. Call [facility] light in reach. Adult w/ patient. 20:54 No provider procedures requiring assistance completed. nj1 20:54 IV discontinued, intact, bleeding controlled. nj1 Administered Medications: No medications were administered Medication: 20:54 VIS not applicable for this client. nj1 Outcome: 20:15 Discharge ordered by . bs3 20:54 Discharged to home via wheelchair, with family. nj1 20:54 Condition: stable 20:54 Discharge instructions given to patient, family, Instructed on discharge instructions, follow up and referral plans. safety practices. 21:01 Patient left the ED. nj1 Signatures: Dispatcher [employer] EDAdriana Ribeiro Victoria, RN RN vg1 Peter Kay MD MD bs3 Jennifer Gonzales RN RN nj1
[2023-01-07 21:27] VITALS: TEMP 98.3; O2SAT 99
[2023-01-07 21:28] VITALS: BP 119/51
--- NOTE | 2023-01-08 14:07 | EKG ---
Test Date: 2023-01-07 Test Time: 20:08:13 Carbide Tool Maker: GUANAKO MEASUREMENT RESULTS: Intervals: Rate: 67 MI: 160 QRSD: 96 QT: 418 QTc: 441 Moran: P: 42 MI: 160 QRS: -37 T: 41 INTERPRETIVE STATEMENTS: Normal sinus rhythm Left axis deviation Nonspecific T wave abnormality Abnormal ECG Compared to ECG 11/12/2021 08:36:05 Left-axis deviation now present T-wave abnormality now present Myocardial infarct finding no longer present Electronically Signed On 01-08-23 14:05:59 CDT by Garth Gomez
== END 2023-01-07 21:01 | disposition home or self-care (01) ==
LOC: ER 17:37
DX: R55 Syncope and collapse (principal); E11.22 Type 2 diabetes mellitus with diabetic chronic kidney disease; I12.0 Hypertensive chronic kidney disease with stage 5 chronic kidney disease or end stage renal disease; N18.6 End stage renal disease; Z99.2 Dependence on renal dialysis; Z88.1 Allergy status to other antibiotic agents; Z88.5 Allergy status to narcotic agent
CPT/HCPCS: 36415; 71045; 80053; 85025; 93005; 99283